=== PATIENT | female | born 1985 | race Caucasian/White ===

== ENCOUNTER → 2018-04-20 | Outpatient (CLI) | payer OTHER ==
[~2018-04-20] MED LIST: None at this time
== END | disposition home or self-care (01) ==
LOC: MERGE 08:00 → STAR 08:21
PROVIDERS: ATTEND Obstetrics & Gynecology
DX: Z02.9 Encounter for administrative examinations, unspecified (principal)

== ENCOUNTER 2018-04-27 05:29 | Day surgery (SDC) | payer OTHER ==
[~2018-04-27] VITALS: Ht 149.9 cm; Wt 71.5 kg
[2018-04-27] MEDS ORDERED: LACTATED RINGERS 1,000 ML IV SCH (06:05)
[2018-04-27 06:48] LABS: HCG UR SG 1.026 (1.003-1.030)
[2018-04-27] MEDS ORDERED: ACETAMINOPHEN 500 MG TABLET PO ONE (07:00)
[2018-04-27] MEDS ORDERED: ONDANSETRON ODT 8 MG PO ONE (07:00)
[2018-04-27] MEDS ORDERED: BUPIVACAINE 0.25% ONE (07:00)
[2018-04-27] MEDS ORDERED: GABAPENTIN 300 MG CAPSULE PO ONE (07:00)
[2018-04-27] MEDS ORDERED: EPINEPHRINE 1 MG/ML, 1ML ONE (07:00)
[2018-04-27] MEDS ORDERED: SILVER NITRATE STICK TP ONE (07:00)
[2018-04-27] MEDS ORDERED: MIDAZOLAM 1 MG/ML, 2ML ONE (07:13)
[2018-04-27] MEDS ORDERED: LIDOCAINE JELLY 2%, 30GM ONE (07:13)
[2018-04-27] MEDS ORDERED: FENTANYL PF 100 MCG/2ML ONE ×2 (07:13→08:45)
[2018-04-27] MEDS ORDERED: KETOROLAC 30 MG/1 ML ONE (08:24)
[2018-04-27] MEDS ORDERED: PROPOFOL 10 MG/ML, 20ML ONE (08:24)
[2018-04-27] MEDS ORDERED: DEXAMETHASONE 4 MG/ML, 1ML ONE (08:24)
[2018-04-27] MEDS ORDERED: LIDOCAINE-MPF 2% ,5ML ONE (08:24)
[2018-04-27] MEDS ORDERED: NEOSTIGMINE 1 MG/ML, 10ML ONE (08:24)
[2018-04-27] MEDS ORDERED: ROCURONIUM 10MG/ML,5ML ONE (08:24)
[2018-04-27] MEDS ORDERED: GLYCOPYRROLATE 0.2MG/1ML, 5ML ONE (08:24)
[2018-04-27] MEDS ORDERED: MEPERIDINE/PF 25MG/0.5ML IVPush PRN (08:30)
[2018-04-27] MEDS ORDERED: ALBUTEROL/IPRATROPIUM 2.5MG/0.5MG, 3 ML NPPB PRN (08:30)
[2018-04-27] MEDS ORDERED: PROMETHAZINE 25 MG SUPP PR PRN (08:30)
[2018-04-27] MEDS ORDERED: LABETALOL 5MG/ML, 20ML IV PRN (08:30)
[2018-04-27] MEDS ORDERED: HYDROmorphone 1 MG/ML, 1ML IV PRN (08:30)
[2018-04-27] MEDS ORDERED: SCOPOLAMINE PATCH, 1.5MG PATCH.TD72 TD PRN (08:30)
[2018-04-27] MEDS ORDERED: MIDAZOLAM 1 MG/ML, 2ML IV PRN (08:30)
[2018-04-27] MEDS ORDERED: OXYcodone 5 MG/5 ML ORAL.SOL UDC PO PRN (08:30)
[2018-04-27] MEDS ORDERED: ONDANSETRON ODT 8 MG PO PRN (08:30)
[2018-04-27] MEDS ORDERED: OXYcodone 5 MG/5 ML ORAL.SOL UDC ONE (08:45)
[2018-04-27] MEDS: FENTANYL PF 100 MCG/2ML IV PRN ×2 (08:47→09:02)
[2018-04-27] MEDS ORDERED: ONDANSETRON ODT 8 MG ONE (08:49)
[2018-04-27] MEDS ORDERED: MEPERIDINE/PF 50 MG/ML ONE (09:15)
[2018-04-27] MEDS ORDERED: PROMETHAZINE 12.5 MG SUPP PR ONE (12:48)
== END 2018-04-27 13:50 | disposition home or self-care (01) ==
LOC: OUT 05:29 → MERGE 07:30 → OUT 13:50
PROVIDERS: ATTEND Obstetrics & Gynecology
DX: Z30.2 Encounter for sterilization (principal); Z98.890 Other specified postprocedural states; Z88.5 Allergy status to narcotic agent; Z88.0 Allergy status to penicillin; Z88.8 Allergy status to other drugs, medicaments and biological substances
CPT/HCPCS: 58661; 81025; 88302; J0171; J1100; J1885; J2175; J2250; J2704; J2710; J3010; J3490; J7120; Q0162